=== PATIENT | female | born 1955 | race Caucasian/White ===

== ENCOUNTER 2020-12-13 17:40 | Inpatient (IN) | payer OTHER, MEDICARE, SELFPAY ==
[~2020-12-13] VITALS: Ht 170.2 cm; Wt 77.6 kg
[~2020-12-13 17:40] MED LIST: BRIN8DRO OP; LEVE500T9 PO; METO25TA3 PO; MONT10TA22 PO; SERT50TA PO; SYN75 PO; TOPI100T11 PO; TRAV2.5D OP
[2020-12-13 17:54] VITALS: BP_SYST 144
[2020-12-13 19:20] LABS: BASOPHILS # (AUTO) 0.1 K/uL (0.0-0.2); BASOPHILS % (AUTO) 0.8 % (0.0-2.0); EOSINOPHILS % (AUTO) 0.2 % (0.0-4.0); HEMATOCRIT 41.9 % (36-48); HEMOGLOBIN 14.1 g/dL (12.0-16.0); LYMPHOCYTES # (AUTO) 1.3 K/uL (1.0-5.5); LYMPHOCYTES % (AUTO) 9.1 % (20.5-51.5); MEAN CORPUSCULAR HEMOGLOBIN 33 pg (27-31); MEAN CORPUSCULAR HGB CONC 34 % (32-36); MEAN CORPUSCULAR VOLUME 98 fL (79.0-98.0); MONOCYTES # (AUTO) 0.8 K/uL (0.0-1.0); MONOCYTES % (AUTO) 5.3 % (1.7-9.3); NEUTROPHILS # (AUTO) 12.3 K/uL (1.8-7.7); NEUTROPHILS % (AUTO) 84.6 % (40.0-70.0); PLATELET COUNT (AUTO) 300 K/uL (130-430); RED BLOOD CELL COUNT(AUTO) 4.27 MIL/uL (4.2-6.2); RED CELL DISTRIBUTION WIDTH 13.1 % (9.0-15.0); WHITE BLOOD COUNT (AUTO) 14.5 K/uL (4.8-10.8)
[2020-12-13 20:20] LABS: ANION GAP 10 (5-15); CALCIUM 9.3 mg/dL (8.4-11.0); CHLORIDE 94 mmol/L (98-107); CREATININE 0.79 mg/dL (0.55-1.30); GLUCOSE 147 mg/dL (70-99); POTASSIUM 3.4 mmol/L (3.5-5.1); SODIUM SERUM 129 mmol/L (136-145); UREA NITROGEN, BLOOD 13 mg/dL (8-21)
[2020-12-13 20:26] LABS: ALANINE AMINOTRANSFERASE 20 U/L (12-78); ALBUMIN 2.6 g/dL (3.4-4.8); ASPARTATE AMINOTRANSFERASE 30 U/L (10-37); TOTAL BILIRUBIN 0.3 mg/dL (0.0-1.0)
[2020-12-13] MEDS ORDERED: D5LR 1,000 ML IV SCH (20:45)
[2020-12-13 20:48] LABS: ACETAMINOPHEN < 1 ug/mL (1-30); ALCOHOL, BLOOD < 3 mg/dL (<10); GFR AFRICAN AMERICAN 94 mL/min (>90)
[2020-12-13] MEDS ORDERED: levETIRAcetam 500 MG TABLET PO SCH (21:00)
[2020-12-13] MEDS ORDERED: LATANOPROST 2.5 ML DROPS (XALATAN) OP SCH (21:00)
[2020-12-13 21:01] LABS: INR 0.9 (0.8-1.2); PROTHROMBIN TIME 9.6 SECS (9.5-12.5)
[2020-12-13 21:34] LABS: BILIRUBIN,URINE NEGATIVE (NEGATIVE); BLOOD, URINE 2+ (NEGATIVE); COLOR,URINE YELLOW (YELLOW); GLUCOSE,URINE NEGATIVE (NEGATIVE); KETONES,URINE NEGATIVE (NEGATIVE); LEUKOCYTE ESTERASE ,URINE 2+ (NEGATIVE); NITRITE, URINE NEGATIVE (NEGATIVE); PROTEIN URINE NEGATIVE (NEGATIVE); UROBILINOGEN,URINE 0.2 (0.2-1.0)
[2020-12-13 21:36] LABS: CLARITY/URINE HAZY (CLEAR)
[2020-12-13 21:47] LABS: BARBITURATE, URINE NEGATIVE (NEG <=200); BENZODIAZEPINE, URINE POSITIVE (NEG <=150); CANNABINOID, URINE NEGATIVE (NEG <=50); COCAINE, URINE NEGATIVE (NEG <=150); METHAMPHETAMINES SCREEN,URINE NEGATIVE (NEG <=500); OPIATE, URINE NEGATIVE (NEG <=100); PHENCYCLIDINE SCREEN,URINE NEGATIVE (NEG <=25); UR TRICYCLIC ANTIDEPRESSANTS NEGATIVE (NEG <=300); URINE AMPHETAMINE NEGATIVE (NEG <=500); URINE METHADONE NEGATIVE (NEG <=200); URINE OXYCODONE SCREEN NEGATIVE (NEG <=100); URINE PROPOXYPHENE SCREEN NEGATIVE (NEG <=300)
[2020-12-13] MEDS ORDERED: BRIMONID TART OP SCH (22:00)
[2020-12-13] MEDS ORDERED: BRINZOLAMIDE OP SCH (22:00)
[2020-12-13] MEDS ORDERED: [UNRECOGNIZED DRUG - OTHER] OP SCH (22:00)
[2020-12-13 22:11] LABS: BACTERIA,URINE MANY /HPF (None Seen)
[2020-12-13 22:24] LABS: C-REACTIVE PROTEIN QUANT 17.3 mg/dL (0-0.5)
[2020-12-13 22:35] LABS: ACETONE, SERUM NEGATIVE (NEGATIVE)
[2020-12-13] MEDS ORDERED: IPRATROPIUM/ALBUTEROL SULFATE 3 ML AMPUL.NEB (DUONEB) INH SCH (23:00)
[2020-12-13 23:13] VITALS: BP_SYST 60
[2020-12-14] MEDS ORDERED: LEVOTHYROXINE SODIUM 0.075 MG TABLET PO SCH (07:00)
[2020-12-14] MEDS ORDERED: MONTELUKAST 10 MG TABLET PO SCH (09:00)
[2020-12-14] MEDS ORDERED: TOPIRAMATE 100 MG TABLET(Topamax) PO SCH (09:00)
[2020-12-14] MEDS ORDERED: METOPROLOL SUCCINATE 25 MG TAB.SR.24H (TOPROL XL) PO SCH (09:00)
[2020-12-14] MEDS ORDERED: SERTRALINE HCL 50 MG TABLET PO SCH (09:00)
== END 2020-12-14 00:08 | DRG 871 ==
LOC: SED 17:40 → STU 20:37
PROVIDERS: ADMIT Internal Medicine; ATTEND Internal Medicine
DX: A41.9 Sepsis, unspecified organism (principal); I60.9 Nontraumatic subarachnoid hemorrhage, unspecified; G93.6 Cerebral edema; E85.9 Amyloidosis, unspecified; I62.9 Nontraumatic intracranial hemorrhage, unspecified; E44.0 Moderate protein-calorie malnutrition; E87.1 Hypo-osmolality and hyponatremia; Z20.822 Contact with and (suspected) exposure to COVID-19; G40.909 Epilepsy, unspecified, not intractable, without status epilepticus; Z51.5 Encounter for palliative care; Z66 Do not resuscitate; E87.6 Hypokalemia; Z93.3 Colostomy status; Z88.8 Allergy status to other drugs, medicaments and biological substances; Z79.899 Other long term (current) drug therapy; Z86.73 Personal history of transient ischemic attack (TIA), and cerebral infarction without residual deficits; Z68.26 Body mass index [BMI] 26.0-26.9, adult
CPT/HCPCS: 36415; 70450-TC; 71045; 76376; 80053; 80307; 81000; 82009; 82140; 82550; 83605; 83880; 84484; 85025; 85610-TC; 85730-TC; 86140; 87040-TC; 87086; 93005; 99285; G0378; G0480; G0481; G0482